=== PATIENT | female | born 1955 | race Caucasian/White ===

== ENCOUNTER 2022-05-09 09:51 | Inpatient (IN) ==
--- NOTE | 2022-05-09 10:00 | Emergency Department Note ---
Lower Extremity Injury HPI General Chief Complaint: Extremity Injury, Lower Stated Complaint: hip pain Time Seen by Provider: 05/09/22 09:59 Limitations: physical limitation History of Present Illness HPI Narrative: Narrative: Patient is a 66-year-old female who comes into the emergency department today with complaint of burning sensation to the right leg located on the anterior side of her thigh and radiates down the medial side of her knee to the calf area. She indicates that she has had this pain since post op day one after she was startled by nursing staff while she was in the bathroom and this caused her to twist suddenly. Over the last 3 or 4 days that has been increasing in intensity. She recently had a hip replacement on May 03, [address] Osborne. Patient was discharged from the hospital on May 04, 2022 and since that time patient has not been ambulating very much because of the pain. She indicates that she has been using a walker to get up and ambulate but has not been bending her knee or moving her hip joint. She has been keeping her leg straight and sliding her leg across the floor while ambulating as she is afraid of moving her leg. She denies any falls. She denies any redness, swelling, fevers, chills, chest pain, shortness of breath, abdominal pain, nausea, or vomiting. Patient has noticed that the pain is aggravated with abduction of her leg. Related Data Home Medications Medication Instructions Recorded Confirmed acetaminophen 500 mg tablet 1,000 mg PO Q4-6HP PRN Pain 04/26/22 05/03/22 calcium 500 mg tablet 1,000 mg PO TID 04/26/22 05/03/22 cholecalciferol (vitamin D3) 50 100 mcg PO QDAY 04/26/22 05/03/22 mcg (2,000 unit) capsule (Vitamin D3) collagen (bovine) 100 % topical 1 applic topical Q24H 04/26/22 05/03/22 powder doxylamine succinate 25 mg tablet 37.5 mg PO QHS 04/26/22 05/03/22 ferrous sulfate 325 mg (65 mg 325 mg PO BID 04/26/22 05/03/22 iron) tablet (iron) glucosamine sulf dipot 1 cap PO DAILY 04/26/22 05/03/22 chlr,msm,chond 550 mg-C 30 mg-tova 1 mg capsule (Glucosamine Chondroitin) lysine 500 mg tablet (L-Lysine) 500 mg PO QDAY 04/26/22 05/03/22 magnesium 200 mg tablet 400 mg PO QDAY 04/26/22 05/03/22 Previous Rx's Medication Instructions Recorded aspirin 81 mg tablet,delayed 81 mg PO BID #60 tabs 05/03/22 release (Ecotrin Low Strength) docusate sodium 100 mg capsule 100 mg PO BID #60 caps 05/03/22 hydrocodone 10 mg-acetaminophen 1 - 2 tab PO Q4H PRN pain #75 tabs 05/03/22 325 mg tablet Allergies Allergy/AdvReac Type Severity Reaction Status Date / Time atorvastatin AdvReac Intermediate Muscle Pain Verified 05/03/22 07:30 Review of Systems ROS ROS Narrative: Narrative: All systems ED: reviewed and negative except as stated. [facility] Narrative Patient History Narrative: Narrative: Medical/Surgical/Family History All Active Problems (Updated 05/09/22 @ 11:59 by ROXI Dejesus) DVT (deep venous thrombosis) (Acute) Fracture of hip (Acute) Social History Smoking Status: Former smoker Exam Narrative Narrative: Narrative: General Limitations: physical limitation General appearance: Present alert, anxious and in no apparent distress Eye Eye: Present normal appearance; Absent scleral icterus ENT ENT: Present normal oropharynx and mucous membranes moist Chest Chest: Present symmetric chest wall rise Respiratory Respiratory: Present normal lung sounds bilaterally; Absent respiratory distress, rales/crackles or accessory muscle use Cardiovascular Cardiovascular: Present regular rate, normal rhythm and normal heart sounds Expanded Lower Extremity Hip/Pelvis: Present tenderness (There is Moderate tenderness with palpation on the anterior and medial side of right thigh.), pelvis stable and other (Full PROM to the right hip. Muscle spasm seen on the quadricep muscle of right leg. Surgical incision to the lateral side of right hip with intact sutures and dressing is dry without discharge. No extending erythema. There is very faint ecchymosis. ); Absent external rotation, internal rotation or shortening Upper leg: Present normal inspection Knee: Present normal inspection; Absent tenderness or effusion Lower leg: Present normal inspection, full ROM, Homans' sign and other (Pedal pulse 2+. Normal sensation to the right lower extremity.); Absent swelling, ecchymosis or palpable cord Neurovascular/Tendon: Present normal capillary refill Neurological Neurological: Present alert and oriented X3 Psychiatric Psychiatric: Present anxious Skin Skin: Present warm (WNL) and dry Course Vital Signs Vital signs: Vital Signs Temperature 98.4 F 05/09/22 09:59 Pulse Rate 96 H 05/09/22 09:59 Respiratory Rate 16 05/09/22 09:59 Blood Pressure 152/84 05/09/22 09:59 Pulse Oximetry (%) 99 05/09/22 09:59 Oxygen Delivery Method 05/09/22 09:59 Temperature 98.4 F 05/09/22 09:59 Pulse Rate 86 05/09/22 13:01 Respiratory Rate 16 05/09/22 09:59 Blood Pressure 138/82 05/09/22 13:01 Pulse Oximetry (%) 100 05/09/22 13:01 Oxygen Delivery Method 05/09/22 09:59 MDM MDM Narrative Medical decision making narrative: Narrative: Patient is a 66-year-old female who presents at the emergency department today with complaint of pain located to the right thigh and radiates to the right calf area. She recently had hip replacement surgery and pain had began suddenly after she was startled in the bathroom while she was in the hospital and turned suddenly. Proceed with an x-ray today that shows a acute periprosthetic fractur e which is new finding compared to postop imaging. Also had proceeded with an ultrasound of the right lower extremity that is positive for DVT in the right posterior tibial vein. Patient had received Valium for muscle spasm upon arrival to the emergency department, and then had proceeded with IV Dilaudid for pain management. After x-ray was obtained to proceed with noncontrast CT of the hip for further evaluation of fracture. CT scan was read by direct radiology and preliminary report shows nondisplaced fracture proximal right femur through the stem of the total hip replacement. I was able to consult with Dr. Block who is on-call for orthopedics today. Dr. Block recommended patient to be admitted to the hospital for management of the DVT under the hospitalist care with starting a heparin drip in case Dr. Henderson would like to proceed with surgical operation. Dr. Block indicates that Dr. Henderson will be the surgeon that we will manage the hip fracture. I was able to speak with hospitalist today and Dr. Salas will admit patient to [facility] and will start patient on heparin drip. Dr. Henderson apparently is on the surgical schedule tomorrow here at [facility] and patient will be evaluated by orthopedics regarding the hip fracture. Lab Data Lab results reviewed: Yes I reviewed the patient's lab results. Result diagrams: 05/09/22 12:36 05/09/22 12:36 Labs: Lab Results 05/09/22 05/09/22 Range/Units 12:36 12:38 WBC 10.2 (4.5-11.0) K/mcL RBC 3.67 (3.59-5.38) M/mcL Hgb 9.5 L (11.2-15.7) g/dL Hct 30.1 L (34.1-44.9) % POC Hct 29.0 L (36-48) MCV 82.0 (80.0-100.0) fL MCH 25.9 L (26.0-34.0) pg MCHC 31.6 (31.0-36.0) g/dL RDW 15.9 H (11.5-14.5) % Plt Count 284 (140-440) K/mcL MPV 9.7 (8.8-12.5) fL Immature Gran % (Auto) 0.8 H (0.0-0.5) % Neut % (Auto) 87.3 H (38.0-78.0) % Lymph % (Auto) 7.5 L (15.5-49.0) % [place] % (Auto) 4.2 (1.0-12.0) % Eos % (Auto) 0 (0.0-7.0) % Baso % (Auto) 0.2 (0.0-2.0) % Lymph # (Auto) 0.76 L (1.50-4.80) K/mcL Stan[place] # (Auto) 0.43 (0.10-0.90) K/mcL Eos # (Auto) 0 (0.00-0.70) K/mcL Baso # (Auto) 0.02 (0.00-0.30) K/mcL Immature Gran # 0.08 H (0.00-0.05) K/mcl Absolute Neutrophils 8.90 H (1.80-8.00) K/mcL POC Sodium 137 (133-145) POC Potassium 4.3 (3.3-5.1) POC Chloride 102 (96-108) POC Total CO2 26.0 (22-30) POC BUN 21 H (6-20) POC Creatinine 0.8 (0.6-1.2) POC Glucose 113 H (70-105) POC WB Ioniz Calcium 1.18 (1.16-1.32) Radiology Data Radiology results reviewed: Yes I reviewed the patient's radiology results. Discharge Plan Patient/Caregiver Discharge Instructions Pt seen by CERTIFIED LEGAL SECRETARY SPECIALIST/PA only: No Clinical Impression: DVT (deep venous thrombosis) Qualifiers: DVT location: lower extremity Affected thrombotic vein of extremity: tibial Chronicity: acute Laterality: right Qualified Code(s): I82.441 - Acute embolism and thrombosis of right tibial vein Fracture of hip Qualifiers: Encounter type: initial encounter Fracture type: closed Laterality: right Qualified Code(s): S72.001A - Fracture of unspecified part of neck of right femur, initial encounter for closed fracture Instructions: Deep Vein Thrombosis (ED), Blood Thinners (ED), Deep Vein Thrombosis Prevention (ED) Patient Disposition: Xfer As Inpt ([facility]) Follow up with: Mendel Osborne MD [Physician] - (Acute fracture through proximal right femur stem of total hip replacement.) Amita Chew NP-C [Primary Care Provider] - Prescriptions: No Action calcium 500 mg Tablet 1,000 mg PO TID acetaminophen [Tylenol Ex Str Arthritis Pain] 500 mg Tablet 1,000 mg PO Q4-6HP PRN (Reason: Pain) ferrous sulfate [iron] 325 mg (65 mg iron) Tablet 325 mg PO BID doxylamine succinate 25 mg Tablet 37.5 mg PO QHS lysine [L-Lysine] 500 mg Tablet 500 mg PO QDAY magnesium 200 mg Tablet 400 mg PO QDAY cholecalciferol (vitamin D3) [Vitamin D3] 50 mcg (2,000 unit) Capsule 100 mcg PO QDAY collagen (bovine) 100 % Powder 1 applic topical Q24H Rx Instructions: Pt takes Collagen powder orally, q coop every day in 8oz of water Glucosamine Chondroitin 550-30-1 mg Capsule 1 cap PO DAILY hydrocodone-acetaminophen 10-325 mg tablet 1 - 2 tab PO Q4H PRN (Reason: pain) Qty: 75 0RF aspirin [Ecotrin Low Strength] 81 mg tablet,delayed release (DR/EC) 81 mg PO BID Qty: 60 0RF docusate sodium 100 mg capsule 100 mg PO BID Qty: 60 0RF
[2022-05-09] MEDS ORDERED: METHOCARBAMOL 750 MG TABLET PO ONE (10:14)
[2022-05-09] MEDS ORDERED: DIAZEPAM 2 MG TABLET PO ONE (10:15)
[2022-05-09] MEDS ORDERED: FUROSEMIDE 100 MG/10 ML VIAL IV ONE (10:27)
[2022-05-09] MEDS ORDERED: HYDROmorphone 1 MG/ML SYRINGE IV ONE (11:27)
--- NOTE | 2022-05-09 12:32 | Internal Med History&Physical ---
HPI History of Present Illness Patient information: Note initiated : 05/09/22 at 12:29 pm Service Date, if different from initiated Date: [] Patient: Linda Velázquez 66 y/o F admitted on for hip pain. Chief Complaint: [] History of present illness: Ms. Velázquez is a 66 year old F Presents to the hospital worsening right leg pain that radiated from the thigh down to the calf. She recently had a right total hip arthroplasty on the . She notes some pain in her right leg after she was startled postop day 1 had sudden twisting motion. Difficulty ambulating. Imaging revealed a periprosthetic fracture on that right hip. And ultrasound showed a posterior tibial vein thrombosis on the right. Case discussed with Dr. Block who recommended using a heparin drip initially as Dr. Henderson might perform surgery. Dr. Block will handoff to Dr. Henderson as Dr. Henderson is the surgeon that performed a recent hip replacement. From advised to hold Dr. Henderson has a block or surgery scheduled for tomorrow. Review of Systems: Pertinent positives as above. Denies headache/fever/chills/nausea/vomiting/chest or abdominal pain/cough/dyspnea/diarrhea. Remaining 10 point review of system reviewed and negative PFSH PFSH All Active Problems (Updated 05/09/22 @ 11:59 by ROXI Dejesus) DVT (deep venous thrombosis) (Acute) Fracture of hip (Acute) Social History smoking status: Former smoker MEDS/ALLERGIES Home Medications and Allergies Home Medications Medication Instructions Recorded Confirmed Type acetaminophen 500 mg tablet 1,000 mg PO Q4-6HP PRN Pain 04/26/22 05/03/22 History calcium 500 mg tablet 1,000 mg PO TID 04/26/22 05/03/22 History cholecalciferol (vitamin D3) 50 100 mcg PO QDAY 04/26/22 05/03/22 History mcg (2,000 unit) capsule (Vitamin D3) collagen (bovine) 100 % topical 1 applic topical Q24H 04/26/22 05/03/22 History powder doxylamine succinate 25 mg tablet 37.5 mg PO QHS 04/26/22 05/03/22 History ferrous sulfate 325 mg (65 mg 325 mg PO BID 04/26/22 05/03/22 History iron) tablet (iron) glucosamine sulf dipot 1 cap PO DAILY 04/26/22 05/03/22 History chlr,msm,chond 550 mg-C 30 mg-tova 1 mg capsule (Glucosamine Chondroitin) lysine 500 mg tablet (L-Lysine) 500 mg PO QDAY 04/26/22 05/03/22 History magnesium 200 mg tablet 400 mg PO QDAY 04/26/22 05/03/22 History aspirin 81 mg tablet,delayed 81 mg PO BID #60 tabs 05/03/22 Rx release (Ecotrin Low Strength) docusate sodium 100 mg capsule 100 mg PO BID #60 caps 05/03/22 Rx hydrocodone 10 mg-acetaminophen 1 - 2 tab PO Q4H PRN pain #75 tabs 05/03/22 Rx 325 mg tablet Allergies Allergy/AdvReac Type Severity Reaction Status Date / Time atorvastatin AdvReac Intermediate Muscle Pain Verified 05/03/22 07:30 EXAM Constitutional Vitals: Temp Pulse Resp BP Pulse Ox O2 Del Method 98.4 F 81 16 152/84 97 05/09/22 09:59 05/09/22 10:58 05/09/22 09:59 05/09/22 10:02 05/09/22 10:58 05/09/22 09:59 Exam: General: Alert, Awake, No acute Distress Eyes/N/T: EOMI, PERRL, Head/Neck: neck supple, CV: RRR, No murmurs, Pulm: Clear b/l, no wheezing/rhonchi/rales Abd: soft, nontender, +BS x4 Ext: no clubbing/cyanosis/edema Neuro: Alert, no focal deficits, moves all extremities, CN 2-12 grossly intact, sensations intact b/l upper/lower Skin: warm/dry A/P Narrative A/P Narrative: A: *Right periprosthetic fracture: *Right ANTOINE on 05/03/2022: *RLE DVT: P: -Heparin drip until determination of surgery made by Dr. Henderson possibly gautam juan -Postop likely DOAC -Orthopedic surgeon Dr. Henderson -npo after midnight -PT/OT Time Spent With Patient Time: Total time spent is greater than 50% in coordination of care (as documented) at patient's floor/unit and/or counseling patient:
[2022-05-09 12:41] LABS: POC Calcium, Ionized 1.18 (1.16-1.32); POC Creatinine 0.8 (0.6-1.2); POC Potassium 4.3 (3.3-5.1)
[2022-05-09 13:11] LABS: Basophils # (Auto) 0.02 K/mcL (0.00-0.30); Basophils % (Auto) 0.2 % (0.0-2.0); Eosinophils # (Auto) 0 K/mcL (0.00-0.70); Eosinophils % (Auto) 0 % (0.0-7.0); Hematocrit 30.1 % (34.1-44.9); Hemoglobin 9.5 g/dL (11.2-15.7); Lymphocytes # (Auto) 0.76 K/mcL (1.50-4.80); Lymphocytes % (Auto) 7.5 % (15.5-49.0); Mean Corpuscular HGB Conc 31.6 g/dL (31.0-36.0); Mean Platelet Volume 9.7 fL (8.8-12.5); Monocytes # (Auto) 0.43 K/mcL (0.10-0.90); Monocytes % (Auto) 4.2 % (1.0-12.0); Neutrophils % (Auto) 87.3 % (38.0-78.0); Platelet Count 284 K/mcL (140-440); RBC 3.67 M/mcL (3.59-5.38); Red Cell Distribution Width 15.9 % (11.5-14.5); WBC 10.2 K/mcL (4.5-11.0)
[2022-05-09 13:21] LABS: INR 0.9 (0.9-1.1); Prothrombin Time 12.9 sec (11.9-14.5)
[2022-05-09 13:35] LABS: ALT/SGPT 19 U/L (<40); AST/SGOT 24 U/L (<32); Albumin 3.4 gm/dL (3.2-5.2); Alkaline Phosphatase 69 U/L (39-117); Bilirubin,Direct < 0.2 mg/dL (0-0.3); Bilirubin,Total 0.3 mg/dL (0.1-1.0); Blood Urea Nitrogen 21 mg/dL (8-23); Calcium 9.2 mg/dL (8.6-10.4); Carbon Dioxide 26 mmol/L (22-30); Chloride 99 mmol/L (96-108); Globulin 3.3 gm/dL (2.2-3.7); Glomerular Filtration Rate 76; Glucose 117 mg/dL (70-105); Lactate Dehydrogenase 225 U/L (135-225); Phosphorous 3.1 mg/dL (2.5-4.5); Triglycerides 77 mg/dL (<150); Uric Acid 3.3 mg/dL (2.5-8.0)
--- NOTE | 2022-05-09 14:10 | XRay Report ---
CLINICAL INFORMATION: Trauma COMPARISON: Postoperative plain films 05/03/2022 FINDINGS: Right total hip prostheses remains in anatomic position. Moderately comminuted fracture through the intertrochanteric region with extension into the proximal femoral diaphysis appreciated. No displacement. Left hip and both SI joints are normal. Soft tissue swelling over the fracture site. IMPRESSION: Oblique oriented moderately comminuted nondisplaced fracture through the intertrochanteric region with extension to the proximal diaphysis of the right hip Interpreted and Authenticated by: Ken Win 05/09/22
--- NOTE | 2022-05-09 14:18 | Ultrasound Report ---
CLINICAL INFORMATION: Leg pain COMPARISON: None. FINDINGS: There is acute occlusive thrombus throughout the paired right posterior tibial veins. The common femoral, superficial femoral, popliteal and peroneal/anterior tibial paired trifurcation calf veins are easily compressible and show normal venous blood flow on color and spectral Doppler. No evidence of thrombus IMPRESSION: Acute occlusive thrombus in the right posterior tibial veins Interpreted and Authenticated by: Ken Win 05/09/22
--- NOTE | 2022-05-09 14:40 | Cat Scan Report ---
CLINICAL INFORMATION: Pain after falling COMPARISON: None. TECHNIQUE: 0.625 mm helical slices were obtained from the mid L4 through the subtrochanteric regions. Following reconstruction, 2.5 mm sagittal, coronal and axial reformations were processed. The exam was reviewed in bone and soft tissue windows. The exam was performed using radiation dose optimization techniques including, but not limited to, automated exposure control, adjustment of mA and/or kV according to patient size and use of iterative reconstruction technique. FINDINGS: A moderately comminuted, predominantly oblique, fracture through the intertrochanteric region of the right hip with extension into the diaphysis appreciated. There is only minimal displacement. No other osseous abnormality. Right total hip prostheses anatomically aligned without loosening or infection. Urinary bladder is unremarkable. Normal postmenopausal uterus is anteflexed and 6 cm in length length. Ovarian regions are normal. There is no free air, free fluid or adenopathy. Few sigmoid diverticula appreciated. The remainder of the visualized large bowel small bowel and the appendix are normal. There is mild edema or fibrosis in the subcutaneous fat overlying the right hip. IMPRESSION: Moderately comminuted, minimally displaced oblique fracture through the intertrochanteric region of the right hip with extension into the diaphysis. Interpreted and Authenticated by: Kne Win 05/09/22
[2022-05-09] MEDS ORDERED: POTASSIUM CHLORIDE 40 MEQ in DEXTROSE 5% IN WATER 500 ML IV PRN (15:04)
[2022-05-09] MEDS ORDERED: 0.9 % SODIUM CHLORIDE 1,000 ML IV ONE (15:04)
[2022-05-09] MEDS ORDERED: morphine 4 MG/ML VIAL IV PRN (15:04)
[2022-05-09] MEDS ORDERED: ONDANSETRON 4 MG/2 ML VIAL IV PRN (15:04)
[2022-05-09] MEDS ORDERED: MAGNESIUM SULFATE 2 GM/50 ML BAG IV PRN (15:04)
[2022-05-09] MEDS ORDERED: POLYETHYLENE GLYCOL 3350 17 GM PACKET PO PRN (15:04)
[2022-05-09] MEDS ORDERED: SENNOSIDES 1 TABLET PO PRN (15:04)
[2022-05-09] MEDS ORDERED: POTASSIUM CHLORIDE 20 MEQ TABLET PO PRN ×2 (15:04)
[2022-05-09] MEDS: 0.9 % SODIUM CHLORIDE 10 ML SYRINGE IV SCH ×2 (15:31→20:30)
[2022-05-09] MEDS ORDERED: HEPARIN 5,000 UNIT/ML VIAL IV SCH (16:00)
[2022-05-09] MEDS: HEPARIN SOD,PORK IN 0.45% NACL 25,000 UNIT in PREMIX 1 BAG IV SCH (16:03)
--- NOTE | 2022-05-09 19:14 | History and Physical Report ---
DATE OF ADMISSION: 05/09/2022 INDICATION: Ms. Velázquez is a 66-year-old female. CHIEF COMPLAINT: Right hip pain. HISTORY: Ms. Velázquez had a total hip arthroplasty on 05/03. She was discharged the following day but has had some ongoing pain. She now presents to the emergency room unable to bear weight. Radiographs have demonstrated a fracture of the proximal femur about the prosthesis. We are now called for further evaluation and management. PAST MEDICAL HISTORY: Fairly unremarkable. PAST SURGICAL HISTORY: Noncontributory aside from the previous total hip. PHYSICAL EXAMINATION: General: She is awake and alert. She is resting comfortably and does have pain. Heart: Regular. Lungs: Clear. Abdomen: Benign. Extremities: Her right lower extremity is carefully positioned. Does have pain with any range of motion without neurovascular deficits. Does have calf pain. Radiographs demonstrate a proximal femur fracture periprosthetic. The prosthesis distally is stable, but she does certainly have fracture beneath the calcar. There would be consideration of possible revision and cabling. Additional workup has demonstrated DVT. She is placed on a heparin drip. I will discuss this with her operating surgeon, Dr Mendel Osbrone. GDD:jer Job ID: [id number] Doc ID: [id number] Daren Block MD
[2022-05-09] MEDS: ACETAMINOPHEN W/CODEINE #3 1 TABLET PO PRN (19:18)
[2022-05-09] MEDS: DOCUSATE SODIUM 100 MG CAPSULE PO SCH (20:30)
[2022-05-10] MEDS: ACETAMINOPHEN W/CODEINE #3 1 TABLET PO PRN ×2 (04:15→08:39)
[2022-05-10] MEDS: 0.9 % SODIUM CHLORIDE 10 ML SYRINGE IV SCH ×3 (06:09→21:28)
--- NOTE | 2022-05-10 07:31 | Internal Med Progress Note ---
SUBJECTIVE Subjective Patient information: Note initiated : 05/10/22 at 7:29 am Service Date, if different from initiated Date: [] Patient: Linda Velázquez a 66 y/o F admitted on 05/09/22 for hip pain; hip fracture. Chief Complaint: [] Interval history: History of present illness: Ms. Velázquez is a 66 year old F Presents to the hospital worsening right leg pain that radiated from the thigh down to the calf. She recently had a right total hip arthroplasty on the . She notes some pain in her right leg after she was startled postop day 1 had sudden twisting motion. Difficulty ambulating. Imaging revealed a periprosthetic fracture on that right hip. And ultrasound showed a posterior tibial vein thrombosis on the right. Case discussed with Dr. Block who recommended using a heparin drip initially as Dr. Henderson might perform surgery. Dr. Block will handoff to Dr. Henderson as Dr. Henderson is the surgeon that performed a recent hip replacement. From advised to hold Dr. Henderson has a block or surgery scheduled for tomorrow. 05/10 Patient n.p.o. in case Dr. Henderson takes for surgery. Pain relatively controlled. Patient on heparin drip for DVT lower extremity. Review of Systems: denies headache/fever/chills/nausea/vomiting/chest or abdominal pain/cough/dyspnea/diarrhea. Otherwise see above. Constitutional Vitals: Vital Signs Temp Pulse Resp BP Pulse Ox O2 Del Method 98.3 F 83 15 134/80 98 05/10/22 04:01 05/10/22 04:01 05/10/22 04:01 05/10/22 04:01 05/10/22 04:01 05/10/22 00:01 Period Temp Pulse Resp BP Sys/Mc Pulse Ox O2 Del Method O2 Flow Rate Last 24 Hr 97.9 F-98.7 F 81-96 15-21 124-152/72-93 90-100 Room Air-Room Air Intake and Output 05/09/22 05/10/22 05/10/22 21:59 05:59 13:59 Intake Total 1398 0 Output Total 680 703 2662 Balance -625 948 -1000 Weight 74.389 kg Intake & Output: Intake & Output 05/09/22 05/10/22 05/10/22 21:59 05:59 13:59 Intake Total 1398 0 Output Total 555 913 2522 Balance -625 768 -1000 Weight 74.389 kg Intake: IV 1198 Sodium Chloride 0.9% 1,000 ml @ 1000 100 mls/hr IV .Q10H ONE Rx#: [id number] Heparin/0.45%Ns 25,000 Unit In 198 Premix 1 Bag @ 18 UNIT/KG/HR 26 .943 mls/hr IV .[id number] [facility] Rx# :[id number] Oral 200 0 Output: Urine Catheter Amount 954 319 3554 Other: Urine Appearance Clear Clear Clear Uretheral ([place]) Clear Urine Color Bright Yellow Yellow Yellow Uretheral ([place]) Yellow Pale Urine Odor Normal Normal Normal Exam: General: Alert, Awake, No acute Distress Eyes/N/T: EOMI, Head/Neck: neck supple, CV: RRR, No murmurs, Pulm: Clear b/l, no wheezing/rhonchi/rales Abd: soft, nontender, +BS x4 Ext: no clubbing/cyanosis/edema Neuro: Alert, no focal deficits, moves all extremities, Skin: warm/dry OBJ DATA Labs CBC & Chem 7: 05/09/22 12:36 05/09/22 12:36 Labs: Abnormal Lab Results 05/10/22 05/09/22 05/09/22 06:30 22:11 12:38 Hgb Hct POC Hct 29.0 L MCH RDW Immature Gran % (Auto) Neut % (Auto) Lymph % (Auto) Lymph # (Auto) Immature Gran # Absolute Neutrophils APTT 124.4 H > 200 H* POC BUN 21 H Glucose POC Glucose 113 H 05/09/22 05/09/22 12:36 12:36 Hgb 9.5 L Hct 30.1 L POC Hct MCH 25.9 L RDW 15.9 H Immature Gran % (Auto) 0.8 H Neut % (Auto) 87.3 H Lymph % (Auto) 7.5 L Lymph # (Auto) 0.76 L Immature Gran # 0.08 H Absolute Neutrophils 8.90 H APTT POC BUN Glucose 117 H POC Glucose Meds: Medications Acetaminophen/Codeine Phosphate (Acetaminophen W/Codeine #3 1 Tablet) 1 tab PO Q4HP PRN PRN Reason: PAIN LEVEL 3-6 Last Admin: 05/10/22 04:15 Dose: 1 tab Docusate Sodium (Docusate Sodium 100 Mg Capsule) 100 mg PO BID [facility] Last Admin: 05/09/22 20:30 Dose: Not Given Potassium Chloride 40 meq/ (Dextrose) 520 mls @ 130 mls/hr IV UD PRN PRN Reason: Potassium < 3 Magnesium Sulfate (Magnesium Sulfate) 2 gm in 50 mls @ 50 mls/hr IV UD PRN PRN Reason: Magnesium </= 1.6 Heparin Sodium/Sodium Chloride (25,000 unit/ Premix) 500 mls @ 26.943 mls/hr IV .[id number] [facility]; Protocol Last Titration: 05/10/22 00:30 Dose: 14 unit/kg/hr, 20.956 mls/hr Morphine Sulfate (Morphine 4 Mg/Ml Vial) 0 mg IV Q3HP PRN PRN Reason: Pain Last Admin: 05/09/22 15:31 Dose: 4 mg Ondansetron HCl (Ondansetron 4 Mg/2 Ml Vial) 4 mg IV Q4HP PRN PRN Reason: Nausea And Vomiting Polyethylene Glycol (Polyethylene Glycol 3350 17 Gm Packet) 17 gm PO DAILYP PRN PRN Reason: Constipation Potassium Chloride (Potassium Chloride 20 Meq Tablet) 40 meq PO UD PRN PRN Reason: Potssium is 3-3.5 Potassium Chloride (Potassium Chloride 20 Meq Tablet) 40 meq PO UD PRN PRN Reason: Potassium < 3 Senna (Sennosides 1 Tablet) 2 tab PO DAILYP PRN PRN Reason: Constipation Sodium Chloride (0.9 % Sodium Chloride 10 Ml Syringe) 10 ml IV Q8 [facility] Last Admin: 05/10/22 06:09 Dose: Not Given A/P Narrative A/P Narrative: A: *Right periprosthetic fracture: *Right ANTOINE on 05/03/2022: *RLE DVT: P: -Heparin drip until determination of surgery made by Dr. Henderson possibly tomorrow -Postop likely DOAC -Orthopedic surgeon Dr. Henderson -npo until seen by surgery -PT/OT Time Spent With Patient Time: Total time spent is greater than 50% in coordination of care (as documented) at patient's floor/unit and/or counseling patient: QUALITY VTE Deep Vein Thrombosis/Pulmonary Embolism Present on Admission: Yes
[2022-05-10] MEDS: HEPARIN SOD,PORK IN 0.45% NACL 25,000 UNIT in PREMIX 1 BAG IV SCH (09:54)
--- NOTE | 2022-05-10 09:57 | Consultation ---
DATE OF CONSULTATION: 05/10/2022 REASON FOR CONSULTATION: The patient was admitted last night for a hip fracture and a DVT. She twisted and felt a pop and had been to therapy for a few days. She found it difficult to ambulate. For that reason, she arrived at the emergency room. She had surgery on 05/03/2022 and she did well initially. She is seen in the emergency room and is diagnosed with hip pain and proximal femur periprosthetic fracture. PAST MEDICAL HISTORY: Fairly unremarkable. PAST SURGICAL HISTORY: Total hip arthroplasty on the right side. PHYSICAL EXAMINATION: GENERAL: Very pleasant female who is alert and oriented x3. Mood and affect appropriate. Well-kept and groomed. HEART: Regular rate and rhythm. LUNGS: Clear to auscultation. ABDOMEN: Soft, benign. EXTREMITIES: Show a shortened and externally rotated right leg and pain with rotational motion. IMAGING/LABORATORY DATA: Other labs unremarkable other than a DVT was found and she has been placed on heparin. The x-rays demonstrate a proximal femur fracture. This will be treated with temple modular stem. The patient understands the risks and benefits. ASSESSMENT AND PLAN: As noted above. MYRANDA:nelson Job ID: [id number] Doc ID: [id number] Mendel Osborne MD
[2022-05-10] MEDS: 0.9 % SODIUM CHLORIDE 1,000 ML IV SCH ×2 (10:00→18:55)
[2022-05-10] MEDS: DOCUSATE SODIUM 100 MG CAPSULE PO SCH ×2 (10:56→21:55)
[2022-05-10] MEDS ORDERED: SCOPOLAMINE 1 PATCH PATCH TOPICAL PRN (12:38)
[2022-05-10] MEDS ORDERED: TRANEXAMIC ACID 1,000 MG/10 ML VIAL IV ONE ×2 (14:09→16:16)
[2022-05-10 15:21] LABS: Hematocrit 29.2 % (34.1-44.9); Hemoglobin 9.3 g/dL (11.2-15.7)
[2022-05-10] MEDS ORDERED: ceFAZolin 2 GM in DEXTROSE 5% IN WATER 50 ML IV SCH (15:45)
[2022-05-10] MEDS ORDERED: FLEETS ADULT ENEMA PR PRN (16:16)
[2022-05-10] MEDS ORDERED: MAGNESIUM HYDROXIDE 30 ML ORAL.SUSP PO PRN (16:16)
[2022-05-10] MEDS ORDERED: ACETAMINOPHEN 325 MG TABLET PO PRN (16:16)
[2022-05-10] MEDS ORDERED: HYDROmorphone 1 MG/ML SYRINGE IV PRN (16:16)
[2022-05-10] MEDS ORDERED: ONDANSETRON 4 MG/2 ML VIAL IV PRN ×2 (16:16→17:39)
[2022-05-10] MEDS ORDERED: POLYETHYLENE GLYCOL 3350 17 GM PACKET PO PRN (16:16)
[2022-05-10] MEDS ORDERED: BISACODYL 10 MG SUPP.RECT PR PRN (16:16)
[2022-05-10] MEDS ORDERED: TEMAZEPAM 15 MG CAPSULE PO PRN (16:16)
--- NOTE | 2022-05-10 16:16 | Brief Operative Note ---
Brief Operative Note Date of procedure: 05/10/22 Pre-op diagnosis: Right hip periprosthetic fx Post-op diagnosis: same Procedure: right hip orif and revision periprosthetic fx Grafts/Implants: Yes Anesthesia: GETA Findings: above Complications: none Surgeon: Mendel Osborne Manager Sourcing: Maldonado Wiggins Estimated blood loss (cc): 120 Specimens Removed/Pathology: none sent Condition: stable Disposition: PACU
[2022-05-10] MEDS ORDERED: MAGNESIUM SULFATE 2 GM/50 ML BAG IV ONE (16:25)
[2022-05-10] MEDS ORDERED: LIDOCAINE HCL/PF 100 MG/5 ML SYRINGE IV ONE (16:25)
[2022-05-10] MEDS ORDERED: DEXAMETHASONE 10 MG/ML VIAL ONE (16:25)
[2022-05-10] MEDS ORDERED: KETAMINE 50 MG/ML Syringe (ANEST) IV ONE (16:25)
[2022-05-10] MEDS ORDERED: HYDROmorphone 1 MG/ML SYRINGE ONE (16:25)
[2022-05-10] MEDS ORDERED: fentaNYL 250 MCG/5 ML VIAL IV ONE (16:25)
[2022-05-10] MEDS ORDERED: ROPIVACAINE HCL/PF 20 ML VIAL IJ ONE (16:25)
[2022-05-10] MEDS ORDERED: TRANEXAMIC ACID 1,000 MG/10 ML VIAL ONE (16:25)
[2022-05-10] MEDS ORDERED: ONDANSETRON 4 MG/2 ML VIAL ONE (16:25)
[2022-05-10] MEDS ORDERED: PROPOFOL 200 MG/20 ML VIAL IV ONE (16:25)
[2022-05-10] MEDS ORDERED: NALOXONE HCL 0.4 MG/ML VIAL IV PRN (17:39)
[2022-05-10] MEDS ORDERED: IPRATROPIUM/ALBUTEROL 3 ML AMPUL.NEB NEB PRN (17:39)
[2022-05-10] MEDS ORDERED: LACTATED RINGERS 250 ML IV PRN (17:39)
[2022-05-10] MEDS ORDERED: HYDROmorphone 0.5 MG/0.5 ML SYRINGE IV PRN (17:39)
[2022-05-10] MEDS ORDERED: PROMETHAZINE 25 MG/ML VIAL IV PRN (17:39)
[2022-05-10] MEDS ORDERED: ACETAMINOPHEN 1,000 MG/100 ML BAG IV ONE (17:39)
[2022-05-10] MEDS ORDERED: fentaNYL 100 MCG/2 ML VIAL IV PRN (17:39)
[2022-05-10] MEDS ORDERED: diphenhydrAMINE 50 MG/ML VIAL IV PRN (17:39)
[2022-05-10] MEDS ORDERED: LACTATED RINGERS 1,000 ML IV SCH (17:45)
[2022-05-10] MEDS: MEPERIDINE 25 MG/ML VIAL IV PRN ×2 (18:30→18:38)
--- NOTE | 2022-05-10 19:02 | XRay Report ---
INDICATION: Post-op Total Hip TECHNIQUE: AP pelvis and crosstable lateral right hip COMPARISON: Preoperative evaluation dated 05/09/2022 FINDINGS: Interval fusion of right total hip arthroplasty. Femoral head and acetabular components are anatomic. There is a longer length femoral stem which has been placed. There are cerclage wires subtrochanteric region. Alignment is essentially anatomic IMPRESSION: Status post revision of right total hip arthroplasty Interpreted and Authenticated by: Ken Denson 05/10/22
[2022-05-10] MEDS: 0.45 % SODIUM CHLORIDE 1,000 ML IV SCH (19:28)
[2022-05-10] MEDS ORDERED: DOCUSATE SODIUM 100 MG CAPSULE PO SCH (21:00)
[2022-05-10] MEDS: SENNOSIDES 1 TABLET PO SCH (21:55)
[2022-05-11] MEDS: ceFAZolin 1 GM VIAL IV SCH ×2 (01:56→07:56)
[2022-05-11] MEDS: 0.9 % SODIUM CHLORIDE 10 ML SYRINGE IV SCH ×5 (01:56→21:32)
[2022-05-11] MEDS: 0.45 % SODIUM CHLORIDE 1,000 ML IV SCH ×3 (02:54→12:36)
[2022-05-11] MEDS: HEPARIN SOD,PORK IN 0.45% NACL 25,000 UNIT in PREMIX 1 BAG IV SCH (02:55)
[2022-05-11] MEDS: 0.9 % SODIUM CHLORIDE 1,000 ML IV SCH (05:39)
[2022-05-11] MEDS: oxyCODONE/APAP 5/325MG TABLET PO PRN ×4 (06:41→21:32)
--- NOTE | 2022-05-11 07:08 | Orthopedic Progress Note ---
SUBJECTIVE Subjective Patient information: Note initiated : 05/11/22 at 7:08 am Service Date, if different from initiated Date: [] Patient: Linda Velázquez 66 y/o F admitted on 05/09/22 for hip pain; hip fracture. Chief Complaint: [Pt is stable this morning on post operative day without any significant concerns or complaints. Patients vital signs have remained stable. Patients dressing is dry and is grossly intact from a neurovascular and motor standpoint. Patients 10 point ROS is otherwise negative. ] Constitutional Vitals: Vital Signs Temp Pulse Resp BP Pulse Ox O2 Del Method O2 Flow Rate 97.2 F 80 15 121/83 96 2 05/11/22 00:00 05/11/22 05:02 05/11/22 06:48 05/11/22 06:48 05/11/22 06:48 05/11/22 06:48 05/11/22 04:01 Period Temp Pulse Resp BP Sys/Mc Pulse Ox O2 Del Method O2 Flow Rate Last 24 Hr 97.1 F-98.6 F 73-95 9-31 86-151/57-101 92-100 Nasal Cannula- Room Air 2-6 Intake and Output 05/10/22 05/11/22 05/11/22 21:59 05:59 13:59 Intake Total 3100 1000 Output Total 1400 1350 Balance 1700 -350 Weight 166 lb 8 oz Intake & Output: Intake & Output 05/10/22 05/11/22 05/11/22 21:59 05:59 13:59 Intake Total 3100 1000 Output Total 1400 1350 Balance 1700 -350 Weight 166 lb 8 oz Intake: IV 1100 1000 Sodium Chloride 0.45% 1,000 ml 1000 @ 100 mls/hr IV .Q10H EMIR Rx#: [id number] Sodium Chloride 0.9% 1,000 ml @ 950 100 mls/hr IV .Q10H EMIR Rx#: [id number] Ancef 2 gm In Dextrose 5% in 50 Water 50 ml @ 100 mls/hr IV PREOP EMIR Rx#:[id number] IV - Manual Only 2000 Output: Urine Catheter Amount 1150 1350 Estimated Blood Loss 250 Other: Urine Appearance Cloudy Clear Sediment Uretheral (Snowden) Clear Urine Color Yellow Pale Uretheral (Snowden) Pale Urine Odor Normal Extremities Exam Extremities exam: Present normal capillary refill, normal inspection, Foot pink and warm and neurovascular intact OBJ DATA Labs CBC & Chem 7: 05/11/22 05:08 05/09/22 12:36 Labs: Abnormal Lab Results 05/11/22 05/10/22 05/10/22 05:08 14:46 06:30 Hgb 9.3 L Hct 29.3 L 29.2 L POC Hct MCH RDW Immature Gran % (Auto) Neut % (Auto) Lymph % (Auto) Lymph # (Auto) Immature Gran # Absolute Neutrophils APTT 124.4 H POC BUN Glucose POC Glucose 05/09/22 05/09/22 05/09/22 22:11 12:38 12:36 Hgb 9.5 L Hct 30.1 L POC Hct 29.0 L MCH 25.9 L RDW 15.9 H Immature Gran % (Auto) 0.8 H Neut % (Auto) 87.3 H Lymph % (Auto) 7.5 L Lymph # (Auto) 0.76 L Immature Gran # 0.08 H Absolute Neutrophils 8.90 H APTT > 200 H* POC BUN 21 H Glucose POC Glucose 113 H 05/09/22 12:36 Hgb Hct POC Hct MCH RDW Immature Gran % (Auto) Neut % (Auto) Lymph % (Auto) Lymph # (Auto) Immature Gran # Absolute Neutrophils APTT POC BUN Glucose 117 H POC Glucose Meds: Medications Acetaminophen (Acetaminophen 325 Mg Tablet) 650 mg PO Q6HP PRN; Protocol PRN Reason: Per Pain Protocol/Fever > 101 Last Admin: 05/11/22 01:49 Dose: 650 mg Bisacodyl (Bisacodyl 10 Mg Supp.Rect) 10 mg CO Q2-3DAYS PRN PRN Reason: Constipation Cefazolin Sodium (Cefazolin 1 Gm Vial) 2 gm IV Q8H EMIR; Protocol Stop: 05/11/22 08:01 Last Admin: 05/11/22 01:56 Dose: 2 gm Docusate Sodium (Docusate Sodium 100 Mg Capsule) 100 mg PO BID [facility] Last Admin: 05/10/22 21:55 Dose: Not Given Hydromorphone HCl (Hydromorphone 1 Mg/Ml Syringe) 0.5 - 2 mg IV Q2HP PRN; Protocol PRN Reason: Per Pain Protocol Potassium Chloride 40 meq/ (Dextrose) 520 mls @ 130 mls/hr IV UD PRN PRN Reason: Potassium < 3 Magnesium Sulfate (Magnesium Sulfate) 2 gm in 50 mls @ 50 mls/hr IV UD PRN PRN Reason: Magnesium </= 1.6 Heparin Sodium/Sodium Chloride (25,000 unit/ Premix) 500 mls @ 26.943 mls/hr IV .[id number] [facility]; Protocol Last Admin: 05/11/22 02:55 Dose: Not Given Sodium Chloride (Sodium Chloride 0.9%) 1,000 mls @ 100 mls/hr IV .Q10H [facility] Last Admin: 05/11/22 05:39 Dose: Not Given Sodium Chloride (Sodium Chloride 0.45%) 1,000 mls @ 100 mls/hr IV .Q10H [facility] Last Admin: 05/11/22 05:39 Dose: 100 mls/hr Magnesium Hydroxide (Magnesium Hydroxide 30 Ml Oral.Susp) 30 ml PO BIDP PRN PRN Reason: Constipation Ondansetron HCl (Ondansetron 4 Mg/2 Ml Vial) 4 mg IV Q4HP PRN PRN Reason: Nausea And Vomiting Oxycodone/Acetaminophen (Oxycodone/Apap 5/325mg Tablet) 1 - 2 tab PO Q4HP PRN; Protocol PRN Reason: Per Pain Protocol Last Admin: 05/11/22 06:41 Dose: 1 tab Polyethylene Glycol (Polyethylene Glycol 3350 17 Gm Packet) 17 gm PO DAILYP PRN PRN Reason: Constipation Potassium Chloride (Potassium Chloride 20 Meq Tablet) 40 meq PO UD PRN PRN Reason: Potssium is 3-3.5 Potassium Chloride (Potassium Chloride 20 Meq Tablet) 40 meq PO UD PRN PRN Reason: Potassium < 3 Scopolamine (Scopolamine 1 Patch Patch) 1 patch TOPICAL PREOP PRN PRN Reason: Nausea And Vomiting Last Admin: 05/10/22 14:45 Dose: 1 patch Senna (Sennosides 1 Tablet) 2 tab PO DAILYP PRN PRN Reason: Constipation Senna (Sennosides 1 Tablet) 2 tab PO HS [facility] Last Admin: 05/10/22 21:55 Dose: Not Given Sodium Biphosphate/Sodium Phosphate (Fleets Adult Enema) 1 dose CO Q3-4DAYS PRN PRN Reason: Constipation Sodium Chloride (0.9 % Sodium Chloride 10 Ml Syringe) 10 ml IV Q8 [facility] Last Admin: 05/11/22 05:39 Dose: 10 ml Sodium Chloride (0.9 % Sodium Chloride 10 Ml Syringe) 10 ml IV Q8 [facility]IR Last Admin: 05/11/22 04:21 Dose: Not Given Temazepam (Temazepam 15 Mg Capsule) 15 mg PO HSP PRN PRN Reason: Insomnia A/P Narrative A/P Narrative: The patient has been educated regarding dressing care, , restrictions, and follow up appointments. The patient has had all necessary DME prescribed. The patient has remained relatively stable during their hospital course. Time Spent With Patient Time: Total time spent is greater than 50% in coordination of care (as documented) at patient's floor/unit and/or counseling patient: Total time spent with greater than 50% in coordination of care (as documented) at patient's floor/unit and/or counseling patient:: less than 15 minutes Critical Care Time: No
--- NOTE | 2022-05-11 07:30 | Internal Med Progress Note ---
SUBJECTIVE Subjective Patient information: Note initiated : 05/11/22 at 7:27 am Service Date, if different from initiated Date: [] Patient: Linda Velázquez a 66 y/o F admitted on 05/09/22 for hip pain; hip fracture. Chief Complaint: [] Interval history: History of present illness: Ms. Velázquez is a 66 year old F Presents to the hospital worsening right leg pain that radiated from the thigh down to the calf. She recently had a right total hip arthroplasty on the . She notes some pain in her right leg after she was startled postop day 1 had sudden twisting motion. Difficulty ambulating. Imaging revealed a periprosthetic fracture on that right hip. And ultrasound showed a posterior tibial vein thrombosis on the right. Case discussed with Dr. Block who recommended using a heparin drip initially as Dr. Henderson might perform surgery. Dr. Block will handoff to Dr. Henderson as Dr. Henderson is the surgeon that performed a recent hip replacement. From advised to hold Dr. Henderson has a block or surgery scheduled for tomorrow. 05/10 Patient n.p.o. in case Dr. Henderson takes for surgery. Pain relatively controlled. Patient on heparin drip for DVT lower extremity. 05/11 Patient feeling better this morning. Had surgery yesterday. We will start Ezequiel knox. Review of Systems: denies headache/fever/chills/nausea/vomiting/chest or abdominal pain/cough/dyspnea/diarrhea. Otherwise see above. Constitutional Vitals: Vital Signs Temp Pulse Resp BP Pulse Ox O2 Del Method O2 Flow Rate 97.2 F 80 15 121/83 96 2 05/11/22 00:00 05/11/22 05:02 05/11/22 06:48 05/11/22 06:48 05/11/22 06:48 05/11/22 06:48 05/11/22 04:01 Period Temp Pulse Resp BP Sys/Mc Pulse Ox O2 Del Method O2 Flow Rate Last 24 Hr 97.1 F-98.6 F 73-95 9-31 86-151/57-101 92-100 Nasal Cannula- Room Air 2-6 Intake and Output 05/10/22 05/11/22 05/11/22 21:59 05:59 13:59 Intake Total 3100 1000 Output Total 1400 1350 Balance 1700 -350 Weight 75.523 kg Intake & Output: Intake & Output 05/10/22 05/11/22 05/11/22 21:59 05:59 13:59 Intake Total 3100 1000 Output Total 1400 1350 Balance 1700 -350 Weight 75.523 kg Intake: IV 1100 1000 Sodium Chloride 0.45% 1,000 ml 1000 @ 100 mls/hr IV .Q10H EMIR Rx#: [id number] Sodium Chloride 0.9% 1,000 ml @ 950 100 mls/hr IV .Q10H EMIR Rx#: [id number] Ancef 2 gm In Dextrose 5% in 50 Water 50 ml @ 100 mls/hr IV PREOP EMIR Rx#:[id number] IV - Manual Only 2000 Output: Urine Catheter Amount 1150 1350 Estimated Blood Loss 250 Other: Urine Appearance Cloudy Clear Sediment Uretheral (Snowden) Clear Urine Color Yellow Pale Uretheral (Snowden) Pale Urine Odor Normal Exam: General: Alert, Awake, No acute Distress Eyes/N/T: EOMI, Head/Neck: neck supple, CV: RRR, No murmurs, Pulm: Clear b/l, no wheezing/rhonchi/rales Abd: soft, nontender, +BS x4 Ext: no clubbing/cyanosis/edema Neuro: Alert, no focal deficits, moves all extremities, Skin: warm/dry OBJ DATA Labs CBC & Chem 7: 05/11/22 05:08 05/09/22 12:36 Labs: Abnormal Lab Results 05/11/22 05/10/22 05/10/22 05:08 14:46 06:30 Hgb 9.3 L Hct 29.3 L 29.2 L POC Hct MCH RDW Immature Gran % (Auto) Neut % (Auto) Lymph % (Auto) Lymph # (Auto) Immature Gran # Absolute Neutrophils APTT 124.4 H POC BUN Glucose POC Glucose 05/09/22 05/09/22 05/09/22 22:11 12:38 12:36 Hgb 9.5 L Hct 30.1 L POC Hct 29.0 L MCH 25.9 L RDW 15.9 H Immature Gran % (Auto) 0.8 H Neut % (Auto) 87.3 H Lymph % (Auto) 7.5 L Lymph # (Auto) 0.76 L Immature Gran # 0.08 H Absolute Neutrophils 8.90 H APTT > 200 H* POC BUN 21 H Glucose POC Glucose 113 H 05/09/22 12:36 Hgb Hct POC Hct MCH RDW Immature Gran % (Auto) Neut % (Auto) Lymph % (Auto) Lymph # (Auto) Immature Gran # Absolute Neutrophils APTT POC BUN Glucose 117 H POC Glucose Meds: Medications Acetaminophen (Acetaminophen 325 Mg Tablet) 650 mg PO Q6HP PRN; Protocol PRN Reason: Per Pain Protocol/Fever > 101 Last Admin: 05/11/22 01:49 Dose: 650 mg Bisacodyl (Bisacodyl 10 Mg Supp.Rect) 10 mg [place] Q2-3DAYS PRN PRN Reason: Constipation Cefazolin Sodium (Cefazolin 1 Gm Vial) 2 gm IV Q8H [facility]; Protocol Stop: 05/11/22 08:01 Last Admin: 05/11/22 01:56 Dose: 2 gm Docusate Sodium (Docusate Sodium 100 Mg Capsule) 100 mg PO BID [facility] Last Admin: 05/10/22 21:55 Dose: Not Given Hydromorphone HCl (Hydromorphone 1 Mg/Ml Syringe) 0.5 - 2 mg IV Q2HP PRN; Protocol PRN Reason: Per Pain Protocol Potassium Chloride 40 meq/ (Dextrose) 520 mls @ 130 mls/hr IV UD PRN PRN Reason: Potassium < 3 Magnesium Sulfate (Magnesium Sulfate) 2 gm in 50 mls @ 50 mls/hr IV UD PRN PRN Reason: Magnesium </= 1.6 Heparin Sodium/Sodium Chloride (25,000 unit/ Premix) 500 mls @ 26.943 mls/hr IV .[id number] [facility]; Protocol Last Admin: 05/11/22 02:55 Dose: Not Given Sodium Chloride (Sodium Chloride 0.9%) 1,000 mls @ 100 mls/hr IV .Q10H EMIR Last Admin: 05/11/22 05:39 Dose: Not Given Sodium Chloride (Sodium Chloride 0.45%) 1,000 mls @ 100 mls/hr IV .Q10H EMIR Last Admin: 05/11/22 05:39 Dose: 100 mls/hr Magnesium Hydroxide (Magnesium Hydroxide 30 Ml Oral.Susp) 30 ml PO BIDP PRN PRN Reason: Constipation Ondansetron HCl (Ondansetron 4 Mg/2 Ml Vial) 4 mg IV Q4HP PRN PRN Reason: Nausea And Vomiting Oxycodone/Acetaminophen (Oxycodone/Apap 5/325mg Tablet) 1 - 2 tab PO Q4HP PRN; Protocol PRN Reason: Per Pain Protocol Last Admin: 05/11/22 06:41 Dose: 1 tab Polyethylene Glycol (Polyethylene Glycol 3350 17 Gm Packet) 17 gm PO DAILYP PRN PRN Reason: Constipation Potassium Chloride (Potassium Chloride 20 Meq Tablet) 40 meq PO UD PRN PRN Reason: Potssium is 3-3.5 Potassium Chloride (Potassium Chloride 20 Meq Tablet) 40 meq PO UD PRN PRN Reason: Potassium < 3 Scopolamine (Scopolamine 1 Patch Patch) 1 patch TOPICAL PREOP PRN PRN Reason: Nausea And Vomiting Last Admin: 05/10/22 14:45 Dose: 1 patch Senna (Sennosides 1 Tablet) 2 tab PO DAILYP PRN PRN Reason: Constipation Senna (Sennosides 1 Tablet) 2 tab PO HS [facility] Last Admin: 05/10/22 21:55 Dose: Not Given Sodium Biphosphate/Sodium Phosphate (Fleets Adult Enema) 1 dose [place] Q3-4DAYS PRN PRN Reason: Constipation Sodium Chloride (0.9 % Sodium Chloride 10 Ml Syringe) 10 ml IV Q8 [facility] Last Admin: 05/11/22 05:39 Dose: 10 ml Sodium Chloride (0.9 % Sodium Chloride 10 Ml Syringe) 10 ml IV Q8 [facility] Last Admin: 05/11/22 04:21 Dose: Not Given Temazepam (Temazepam 15 Mg Capsule) 15 mg PO HSP PRN PRN Reason: Insomnia A/P Narrative A/P Narrative: A: *Right periprosthetic fracture: s/p ORIF (05/10) *Right ANTOINE on 05/03/2022: *RLE DVT: P: -start DOAC 24hrs after surgery, start ezequiel knox -Orthopedic surgeon Dr. Henderson -PT/OT Time Spent With Patient Time: Total time spent is greater than 50% in coordination of care (as documented) at patient's floor/unit and/or counseling patient: QUALITY VTE Deep Vein Thrombosis/Pulmonary Embolism Present on Admission: Yes
[2022-05-11] MEDS: DOCUSATE SODIUM 100 MG CAPSULE PO SCH ×2 (07:56→21:31)
--- NOTE | 2022-05-11 08:13 | Operative Note ---
DATE OF OPERATION: 05/10/2022 DATE OF PROCEDURE: 05/10/2022 PREOPERATIVE DIAGNOSIS: Right hip intertrochanteric fracture with a periprosthetic fracture displacement, status post total hip arthroplasty. POSTOPERATIVE DIAGNOSIS: Right hip intertrochanteric fracture with a periprosthetic fracture displacement, status post total hip arthroplasty. PROCEDURE: Right periprosthetic fracture open reduction and internal fixation with revision of stem and open reduction and internal fixation of the greater trochanter and lesser trochanter. SURGEON: Mendel Osborne M.D. GAS SYSTEMS WORKER: Maldonado Wiggins PA-C. The expertise and technical skill of this provider were required throughout the case. The DONTE assisted with preoperative coordination, intraoperative retraction, wound closure, and dressing and splint application, as well as postoperative documentation and care coordination. ANESTHESIA: General LMA anesthesia. COMPLICATIONS: None. ESTIMATED BLOOD LOSS: 200 mL. BLOOD PRODUCTS GIVEN: None. IMPLANTS: Size 16 mosque modular stem with a +10 mm, 20 x 23 mm in diameter, proximal body with a +10 neck length of 36 mm all metal ball. Two cables were implanted. DISPOSITION: To PACU. DESCRIPTION OF PROCEDURE: The patient was brought to the operating room, put to sleep with general LMA anesthesia. Once asleep, the patient had the right hip sterilely prepped and draped in the usual sterile fashion. Once this was done, we confirmed the operative site by initials, consent form, and x-rays. We made an incision through the prior scar, which had been healing very nicely. This was extended distally about 3 inches, dissected through the fatty layer and through the fascial layer, which was healed quite well. There was quite a bit of blood in and around the fracture site. This was then explored. The stem was removed. Two cables on the proximal fragments were placed. We then reamed up to the size of 16 mosque modular stem. An x-ray was taken to confirm the alignment--all appeared to be very well-positioned. We then placed a mosque modular 16 mm distal fragment porous ingrowth titanium. The proximal body was sized to a size +10 or +20. We trialed both sizes. The +10 was the most appropriate for leg length with a +10 neck length with a 23 mm proximal body. Once this was imaged to confirm leg lengths we irrigated thoroughly and then placed the hip through range of motion, very stable. The stem was placed in about 15 degrees of version. We then placed the proximal implant after trials had been accomplished at 15 degrees of anteversion and tensioned the modular body with the screw at 180 Newtons of pressure. Once done, we were able to then place the +10 neck length with a 36 mm ball, which was very stable. This was reduced. We then retensioned the cables and then they were crimped into place. We then took the hip through range of motion to confirm reduction. We repaired the posterior capsule and repaired the fascial layer of the gluteus nick with Stratafix x2, closed the skin with Stratafix and 2-0 Vicryl and oscar superficially. The patient tolerated this well. There were no complications. RBH:kh Job ID: [id number] Doc ID: [id number] Mendel Osborne MD
[2022-05-11] MEDS: SENNOSIDES 1 TABLET PO SCH (21:31)
[2022-05-11] MEDS: APIXABAN 5 MG TABLET PO SCH (21:31)
[2022-05-12] MEDS: oxyCODONE/APAP 5/325MG TABLET PO PRN ×3 (02:34→12:17)
[2022-05-12] MEDS: 0.9 % SODIUM CHLORIDE 10 ML SYRINGE IV SCH (05:22)
[2022-05-12] MEDS: APIXABAN 5 MG TABLET PO SCH (08:13)
[2022-05-12] MEDS: DOCUSATE SODIUM 100 MG CAPSULE PO SCH (08:13)
--- NOTE | 2022-05-12 11:19 | Discharge Summary ---
Discharge Provider Provider IMPORTANT FOLLOW-UP INFORMATION FOR PCP: Patient information: Note initiated : 05/12/22 at 11:17 am Service Date, if different from initiated Date: [] Patient: Linda Velázquez 66 y/o F admitted on 05/09/22 for hip pain; hip fracture. Chief Complaint: [] Date of admission: 05/09/22 15:00 Discharge date: 05/12/22 Primary care physician: Amita Chew NP Attending physician on admission: Harris Nunes Pui Consults: 05/09/22 12:18 Consult to Physician [CONS] Stat Comment: Consulting Provider: Miguel Salas Reason For Exam: Physician to Consult 05/09/22 12:19 Consult to Physician [CONS] Stat Comment: Consulting Provider: Daren Block Reason For Exam: Physician to Consult 05/09/22 15:04 Consult to Physician [CONS] Routine Comment: Consulting Provider: Mendel Osboren Reason For Exam: Physician to Consult 05/12/22 09:30 Consult to Physician [CONS] Routine Comment: Consulting Provider: [facility] Reason For Exam: Physician to Consult Attending physician on discharge: Harris Nunes Pui COURSE Hospital Course Hospital course: History of present illness: Ms. Velázquez is a 66 year old F Presents to the hospital worsening right leg pain that radiated from the thigh down to the calf. She recently had a right total hip arthroplasty on the . She notes some pain in her right leg after she was startled postop day 1 had sudden twisting motion. Difficulty ambulating. Imaging revealed a periprosthetic fracture on that right hip. And ultrasound showed a posterior tibial vein thrombosis on the right. Case discussed with Dr. Block who recommended using a heparin drip initially as Dr. Henderson might perform surgery. Dr. Block will handoff to Dr. Henderson as Dr. Henderson is the surgeon that performed a recent hip replacement. From advised to hold Dr. Henderson has a block or surgery scheduled for tomorrow. 05/10 Patient n.p.o. in case Dr. Henderson takes for surgery. Pain relatively controlled. Patient on heparin drip for DVT lower extremity. 05/11 Patient feeling better this morning. Had surgery yesterday. We will start Ale knox. 05/12: Discharged to SNF Discharge diagnosis: hip fracture Time Spent with Patient Time attestation: Total time spent providing and/or coordinating discharge services: Time spent: Less than 30 minutes EXAM Constitutional Vitals: Temp Pulse Resp BP Pulse Ox O2 Del Method O2 Flow Rate 36.9 C 97 H 16 106/58 99 2 05/12/22 08:00 05/12/22 08:00 05/12/22 08:00 05/12/22 08:00 05/12/22 11:00 05/12/22 11:00 05/11/22 04:01 General appearance: cooperative and no acute distress Head Head exam: Present atraumatic and normocephalic Eye Eye exam: Present EOMI and PERRL ENT ENT exam: Present mucous membranes moist, normal exam and normal external ear exam Neck Neck exam: Present normal inspection; Absent lymphadenopathy, tenderness or thyromegaly Respiratory Respiratory exam: Absent accessory muscle use, respiratory distress or wheezes Cardiovascular Cardiovascular exam: Present normal rate and rhythm; Absent JVD GI/Abdominal GI/Abdominal exam: Present normal bowel sounds and soft; Absent organomegaly or tenderness Extremities Exam Extremities exam: Present normal capillary refill and tenderness; Absent full ROM or normal inspection Additional comments: Right lateral hip covered by surgical dressing Neurological Exam Neurological exam: Present alert, CN II-XII intact and oriented X3; Absent motor sensory deficit Psychiatric Psychiatric exam: Present normal affect and normal mood; Absent anxious or depressed Skin Skin exam: Present dry and intact Discharge Plan Patient/Caregiver Discharge Instructions Activity: as instructed Diet: Regular Diet Prescriptions: New Eliquis 5 mg Tablet 5 mg PO BID 30 Days Qty: 60 1RF Continued acetaminophen 500 mg Tablet 1,000 mg PO Q4-6HP PRN (Reason: Pain) magnesium 200 mg Tablet 400 mg PO DAILY cholecalciferol (vitamin D3) [Vitamin D3] 50 mcg (2,000 unit) Capsule 100 mcg PO QDAY collagen (bovine) 100 % Powder 1 applic topical Q24H Rx Instructions: Pt takes Collagen powder orally, q coop every day in 8oz of water docusate sodium 100 mg capsule 100 mg PO BID Qty: 60 0RF hydrocodone-acetaminophen 10-325 mg tablet 1 - 2 tab PO Q4H PRN (Reason: pain) Qty: 20 0RF Discontinued aspirin [Ecotrin Low Strength] 81 mg tablet,delayed release (DR/EC) 81 mg PO BID Qty: 60 0RF Follow Up Plan Follow up with: Mendel Osborne MD [Physician] - (Acute fracture through proximal right femur stem of total hip replacement.) Amita Chew NP-C [Primary Care Provider] - Patient Disposition: Xfer SNF Prognosis: Good Rehab Potential: Good I certify that the patient requires SNF services: Yes Overall status at discharge: patient is progressing back to baseline Discharge Orders: Discharge Order (Routine); Ordered 05/12/22 Ordered By: Harris Nunes [place] Discharge Comment: when cleared by hospitalist--cleared by ortho. QUALITY VTE Deep Vein Thrombosis/Pulmonary Embolism Present on Admission: Yes
== END 2022-05-12 13:10 | DRG 467 ==
LOC: ED 09:51 → ICU 15:00 → MEDSUR 05-11 10:29
PROVIDERS: ADMIT Internal Medicine; ATTEND Internal Medicine